=== PATIENT | male | born 1945 | race African-American/Black ===

== ENCOUNTER 2023-07-03 16:32 | Inpatient (IN) | payer MEDICARE, MEDICAID ==
[~2023-07-03] VITALS: Ht 188 cm; Wt 94.6 kg
[~2023-07-03 16:32] MED LIST: AMIO200T68 PO; APIX5TAB PO; ASPI81 PO; ATOR40TA28 PO; FURO20 PO; SACU1TAB PO; SPIR-37 PO
[2023-07-03 18:07] LABS: BASOPHILS % (AUTO) 0.6 % (0.0-2.0); EOSINOPHILS % (AUTO) 5.2 % (1.0-6.0); HEMATOCRIT 42.5 % (41-53); HEMOGLOBIN 13.5 g/dL (13.5-17.5); LYMPHOCYTES # (AUTO) 0.4 K/uL (1.0-4.8); LYMPHOCYTES % (AUTO) 7.4 % (22.0-44.0); MEAN CORPUSCULAR HEMOGLOBIN 26.8 pg (26.0-34.0); MEAN CORPUSCULAR HGB CONC 31.9 G/dL (31.0-37.0); MEAN CORPUSCULAR VOLUME 84 fL (80-100); MONOCYTES # (AUTO) 0.6 K/uL (0.1-1.0); MONOCYTES % (AUTO) 10.7 % (2.0-9.0); NEUTROPHILS # (AUTO) 4.5 K/uL (1.8-7.7); NEUTROPHILS % (AUTO) 76.1 % (40.0-70.0); PLATELET COUNT (AUTO) 205 K/uL (150-450); RED BLOOD CELL COUNT(AUTO) 5.06 MIL/uL (4.50-5.90); RED CELL DISTRIBUTION WIDTH 19.6 % (11.5-14.5)
[2023-07-03 18:17] LABS: CALCIUM, TOTAL 8.8 mg/dL (8.8-10.5); CREATININE 1.42 mg/dL (0.60-1.30); POTASSIUM 4.7 mmol/L (3.5-5.1)
[2023-07-03 18:23] LABS: ALBUMIN 2.7 g/dL (3.4-5.0); BILIRUBIN,TOTAL 0.3 mg/dL (0.1-1.0); TOTAL PROTEIN, SERUM 6.9 g/dL (6.4-8.2)
[2023-07-03 18:25] LABS: TROPONIN I-HIGH SENSITIVITY 54 ng/L (<76)
[2023-07-03] MEDS: FUROSEMIDE 20 MG/2 ML VIAL IVP SCH (19:30)
[2023-07-03] MEDS ORDERED: ACETAMINOPHEN 325 MG TABLET PO PRN (19:30)
[2023-07-03] MEDS ORDERED: MAGNESIUM HYDROXIDE SUSPENSION 30 ML UDCUP PO PRN (19:30)
[2023-07-03] MEDS ORDERED: OxyCODONE HCL/ACETAMINOPHEN 5-325 MG TABLET PO PRN (19:30)
[2023-07-03] MEDS ORDERED: FUROSEMIDE 40 MG/4 ML VIAL IVP ONE (19:45)
[2023-07-03 20:56] LABS: COVID AG,FIA SOURCE NASAL SWAB
[2023-07-03 21:15] LABS: SARS-COV2 (COVID) ANTIGEN,FIA Negative (Negative)
[2023-07-03 22:32] VITALS: BP 104/67; PULSE 104; RESP 20; TEMP 97.4
[2023-07-04] MEDS: HEPARIN SODIUM,PORCINE 5,000 UNITS/ML VIAL SQ SCH ×3 (00:11→17:10)
[2023-07-04 05:46] VITALS: BP 112/69; PULSE 83; RESP 18; TEMP 98.1
[2023-07-04 08:41] VITALS: BP 116/71; PULSE 97; RESP 19; TEMP 98.2
[2023-07-04] MEDS: ASPIRIN 81 MG CHEWABLE TABLET PO SCH (08:59)
[2023-07-04] MEDS: FUROSEMIDE 20 MG/2 ML VIAL IVP SCH (08:59)
[2023-07-04] MEDS: FAMOTIDINE 20 MG TABLET PO SCH (09:03)
[2023-07-04] MEDS: ATORVASTATIN CALCIUM 20 MG TABLET PO SCH (09:03)
[2023-07-04 11:24] VITALS: BP 117/68; PULSE 89; RESP 18; TEMP 98.3
[2023-07-04] MEDS: METOPROLOL SUCCINATE 25 MG ER TABLET PO SCH (11:26)
[2023-07-04 14:30] VITALS: BP 114/72; PULSE 90; RESP 19; TEMP 98
[2023-07-04 20:00] VITALS: BP 120/78; PULSE 88; RESP 19; TEMP 98.1
[2023-07-05] MEDS: HEPARIN SODIUM,PORCINE 5,000 UNITS/ML VIAL SQ SCH ×3 (00:08→16:32)
[2023-07-05 04:00] VITALS: BP 134/76; PULSE 60; RESP 19; TEMP 98
[2023-07-05 06:59] LABS: BASOPHILS % (AUTO) 0.5 % (0.0-2.0); HEMATOCRIT 38.2 % (41-53); HEMOGLOBIN 12.7 g/dL (13.5-17.5); LYMPHOCYTES # (AUTO) 0.4 K/uL (1.0-4.8); LYMPHOCYTES % (AUTO) 8.1 % (22.0-44.0); MEAN CORPUSCULAR HEMOGLOBIN 27.4 pg (26.0-34.0); MEAN CORPUSCULAR HGB CONC 33.2 G/dL (31.0-37.0); MEAN CORPUSCULAR VOLUME 83 fL (80-100); MONOCYTES # (AUTO) 0.9 K/uL (0.1-1.0); MONOCYTES % (AUTO) 18.1 % (2.0-9.0); NEUTROPHILS # (AUTO) 3.2 K/uL (1.8-7.7); NEUTROPHILS % (AUTO) 66.3 % (40.0-70.0); PLATELET COUNT (AUTO) 235 K/uL (150-450); RED BLOOD CELL COUNT(AUTO) 4.63 MIL/uL (4.50-5.90); RED CELL DISTRIBUTION WIDTH 19.2 % (11.5-14.5); WHITE BLOOD COUNT (AUTO) 4.8 K/uL (4.5-11.0)
[2023-07-05 07:15] LABS: ANION GAP 7 mmol/L (8-16); CALCIUM, TOTAL 8.7 mg/dL (8.8-10.5); CARBON DIOXIDE 28 mmol/L (22-29); CHLORIDE 103 mmol/L (98-107); CREATININE 1.27 mg/dL (0.60-1.30); GLOMERULAR FILTR. RATE CALC > 60 mL/min (>60); GLUCOSE,RANDOM 101 mg/dL (70-110); POTASSIUM 4.2 mmol/L (3.5-5.1); SODIUM SERUM 138 mmol/L (136-145); UREA NITROGEN, BLOOD 22 mg/dL (7-18)
[2023-07-05 08:00] VITALS: BP 113/74; PULSE 51; RESP 18; TEMP 97.7
[2023-07-05] MEDS ORDERED: LOSARTAN POTASSIUM 25 MG TABLET PO SCH (09:00)
[2023-07-05] MEDS ORDERED: SPIRONOLACTONE 25 MG TABLET PO SCH (09:00)
[2023-07-05] MEDS: FUROSEMIDE 20 MG/2 ML VIAL IVP SCH (09:25)
[2023-07-05] MEDS: ASPIRIN 81 MG CHEWABLE TABLET PO SCH (09:25)
[2023-07-05] MEDS: ATORVASTATIN CALCIUM 20 MG TABLET PO SCH (09:26)
[2023-07-05] MEDS: FAMOTIDINE 20 MG TABLET PO SCH (09:26)
[2023-07-05] MEDS: METOPROLOL SUCCINATE 25 MG ER TABLET PO SCH (09:27)
[2023-07-05 14:14] VITALS: RESP 18; TEMP 97.6
[2023-07-05 15:49] VITALS: BP 109/60; PULSE 92; RESP 18; TEMP 97.8
== END 2023-07-05 19:00 | disposition home or self-care (01) | DRG 291 ==
LOC: EMS 16:41 → AHU 20:09 → 5N 20:37
PROVIDERS: ADMIT Internal Medicine; ATTEND Internal Medicine
DX: I13.0 Hypertensive heart and chronic kidney disease with heart failure and stage 1 through stage 4 chronic kidney disease, or unspecified chronic kidney disease (principal); I50.23 Acute on chronic systolic (congestive) heart failure; Z59.00 Homelessness unspecified; E44.0 Moderate protein-calorie malnutrition; I48.92 Unspecified atrial flutter; I48.91 Unspecified atrial fibrillation; Z20.822 Contact with and (suspected) exposure to COVID-19; I95.9 Hypotension, unspecified; R00.1 Bradycardia, unspecified; I07.1 Rheumatic tricuspid insufficiency; E11.22 Type 2 diabetes mellitus with diabetic chronic kidney disease; N18.30 Chronic kidney disease, stage 3 unspecified; I42.9 Cardiomyopathy, unspecified; Z86.73 Personal history of transient ischemic attack (TIA), and cerebral infarction without residual deficits; Z68.26 Body mass index [BMI] 26.0-26.9, adult; Z79.899 Other long term (current) drug therapy; Z79.82 Long term (current) use of aspirin; I25.2 Old myocardial infarction
CPT/HCPCS: 71045; 80048; 80053; 83880; 84484; 85025; 93005; 99285; J1644; J1940; 36415-L1; 36415-TC